=== PATIENT | male | born 1965 | race Asian ===

== ENCOUNTER → 2016-12-19 | Outpatient (CLI) | payer BC | LOC: COL.RAD 09:28 | DX: E06.9 Thyroiditis, unspecified (principal) ==

== ENCOUNTER → 2017-04-29 | Outpatient (CLI) | payer BC ==
[~2017-04-29] MED LIST: HCTZ 25MG TAB25 MG PO
== END ==
LOC: COL.VAS 07:45
DX: R42 Dizziness and giddiness (principal); R07.89 Other chest pain

== ENCOUNTER 2021-01-05 09:26 | Day surgery (SDC) | payer BC ==
[~2021-01-05] VITALS: Ht 177.8 cm; Wt 83.7 kg
[2021-01-05] MEDS ORDERED: LIPITOR20 MG PO (09:46)
[2021-01-05] MEDS ORDERED: TOPROL XL 25MG25 MG PO (09:46)
[2021-01-05 09:56] VITALS: BP 128/88; PULSE 76; TEMP 96.8
[2021-01-05 10:55] VITALS: BP 129/96; PULSE 75; TEMP 97.8
--- NOTE | 2021-01-05 10:55 | NUR ---
1055- PATIENT BROUGHT BACK TO ENDO ROOM 1 VIA CART. AMBULATED TO CHAIR WITH ONE ASSIST. PLACED ON MONITORS, VITAL SIGNS STABLE. AT BEDSIDE TO DRIVE PATIENT HOME. DENIES PAIN OR NAUSEA. STATES HE WOULD JUST LIKE WATER. JUVENCIO AT BEDSIDE TO GIVE REPORT. WARM BLANKET PROVIDED, CALL [facility] WITHIN REACH. WILL CONTINUE TO MONITOR. 1110- PATIENT TOLERATING WATER WITHOUT DIFFICULTY. VITAL SIGNS STABLE. WAITING TO SPEAK WITH DOCTOR. WILL MONITOR. 1125- VITAL SIGNS STABLE. DR. RAMIREZ AT BEDSIDE TO DISCUSS RESULTS. IV REMOVED, INTACT. DISCHARGE INSTRUCTIONS REVIEWED WITH PATIENT AND FAMILY. PATIENT TO GET DRESSED AT THIS TIME. 1132- PATIENT BROUGHT DOWN TO LOBBY VIA WHEEL CHAIR. TO DRIVE PATIENT HOME. ALL BELONGINGS IN HAND.
[2021-01-05 11:10] VITALS: BP 125/95; PULSE 71
[2021-01-05 11:25] VITALS: BP 139/95; PULSE 64
== END 2021-01-05 11:32 | disposition home or self-care (01) ==
LOC: SDCO 09:26
DX: Z12.11 Encounter for screening for malignant neoplasm of colon (principal); D12.2 Benign neoplasm of ascending colon; I10 Essential (primary) hypertension; K21.9 Gastro-esophageal reflux disease without esophagitis; F32.9 Major depressive disorder, single episode, unspecified; Z79.899 Other long term (current) drug therapy
CPT/HCPCS: J2704; J7030